=== PATIENT | female | born 1975 | race Caucasian/White ===

== ENCOUNTER 2016-12-31 20:17 | Emergency (ER) | payer BC ==
[2016-12-31 20:33] VITALS: BP 115/87
--- NOTE | 2016-12-31 21:01 | EDM.PDOC ---
ED HPI GENERAL MEDICAL PROBLEM - General Chief Complaint: Lower Extremity Injury/Pain Stated Complaint: REDNESS TO RIGHT LEG Time Seen by Provider: 12/31/16 20:18 Source of Information: Reports: Patient, Family History Limitations: Reports: No Limitations - History of Present Illness INITIAL COMMENTS - FREE TEXT/NARRATIVE: This is a 41-year-old female. She was seen twice yesterday at [place]. She had pain in her right lower extremity and she has a history of blood clots and they did a ultrasound that did not show any blood clots but did show some lymphadenopathy in the right groin. They sent her home and when she got home after a few hours she noted a red spot on the back of her right lower leg and there was increasing pain. She went back to the ER in some time and there they did a CT scan looking at the groin area and they found some mild swollen lymph nodes but nothing of great abnormality. Since that time the redness on the back of her right lower leg is markedly larger. The lymphadenopathy is about the same but there is much less pain. Patient comes tonight for reevaluation. She denies any fever or chills though she's been sweating some on occasions. She denies any nausea vomiting no abdominal pain no difficulty in urination and she denies . Review of the records from [place] shows a negative duplex scan of the right lower extremity and negative CT scan. She was noted to have a 14.1 white count with 87% neutrophils noted. Right Lower Leg Pain Score (Numeric/FACES): 4 - Related Data Allergies Allergy/AdvReac Type Severity Reaction Status Date / Time No Known Allergies Allergy Verified 12/31/16 20:26 Home Meds: Home Meds ALPRAZolam [Xanax] 1 tab PO ASDIRECTED PRN 07/05/16 [History] Escitalopram Oxalate [Lexapro] 50 mg PO DAILY 07/05/16 [History] Acetaminophen/oxyCODONE [Percocet 325-5 MG] 1 tab PO QID PRN 12/31/16 [History] Cephalexin [Keflex] 500 mg PO Q6HR #28 cap 12/31/16 [Rx] Cyclobenzaprine [Flexeril] 10 mg PO TID PRN 12/31/16 [History] Past Medical History HEENT History: Reports: Impaired Vision Other HEENT History: wears glasses Cardiovascular History: Reports: Blood Clots/VTE/DVT CREW BOSS History: Reports: Psychiatric History: Reports: Anxiety Hematologic History: Reports: Other (See Below) Other Hematologic History: anticardiolipin antibody - Past Surgical History Cardiovascular Surgical History: Reports: Other (See Below) GI Surgical History: Reports: Other (See Below) Social & Family History - Family History Endocrine/Metabolic: Reports: Diabetes, type II - Tobacco Use Smoking Status *Q: Never Smoker Second Hand Smoke Exposure: No - Caffeine Use Caffeine Use: Reports: Soda - Recreational Drug Use Recreational Drug Use: No Review of Systems - Review of Systems Review Of Systems: See Below Constitutional: Reports: Diaphoresis. Denies: Chills, Fever Eyes: Reports: No Symptoms Ears: Reports: No Symptoms Nose: Reports: No Symptoms Mouth/Throat: Reports: No Symptoms Respiratory: Reports: No Symptoms Cardiovascular: Reports: No Symptoms GI/Abdominal: Reports: No Symptoms Genitourinary: Reports: No Symptoms Musculoskeletal: Reports: Other (As per history of present illness) Skin: Reports: Other (As per history of present illness) Neurological: Reports: No Symptoms Psychiatric: Reports: No Symptoms ED EXAM, GENERAL - Physical Exam Exam: See Below Exam Limited By: No Limitations General Appearance: Alert, WD/WN, No Apparent Distress Eye Exam: Bilateral Eye: Normal Inspection Ears: Normal External Exam Nose: Normal Inspection Throat/Mouth: Normal Inspection, Normal Lips, Normal Voice Head: Normocephalic Neck: Supple Respiratory/Chest: No Respiratory Distress, Lungs Clear, Normal Breath Sounds Cardiovascular: Regular Rate, Rhythm, No Murmur GI/Abdominal: Soft, Non-Tender Back Exam: Full Range of Motion Extremities: Other (Her right lower extremity has a large patch of redness on the posterior lower leg it is approximately 12 cm x 28 cm in size extending from the back of the knee down to the ankle, her right foot does have some areas of callus that is split as well as some small areas that look like small abrasions but there is no redness around that area just above it, the redness does not extend into her thigh, the right groin still has some lymphadenopathy though it is not very tender at this time, the left lower extremity is normal) Neurological: Alert Psychiatric: Normal Affect, Normal Mood Skin Exam: Warm, Dry Course - Vital Signs Last Recorded V/S: Last Vital Signs Temp 97.6 F 12/31/16 20:28 Pulse 74 12/31/16 20:28 Resp 18 12/31/16 20:28 BP 115/87 12/31/16 20:28 Pulse Ox 97 12/31/16 20:28 - Orders/Labs/Meds Orders: Active Orders 24 hr Category Date Time Status VL Duplex Lwr Ext Veins Ltd Rt [US] Stat Exams 12/31/16 20:51 Taken cefTRIAXone 1 GM with Lidocaine 1% 2.1 ML IM Med 12/31/16 22:45 Ordered cefTRIAXone [Rocephin] 1 gm Lidocaine 1% [Xylocaine 1%] 2.1 ml IM Q24H Labs: Laboratory Tests 12/31/16 Range/Units 21:23 WBC 8.33 (3.98-10.04) K/mm3 RBC 4.84 (3.98-5.22) M/mm3 Hgb 13.6 (11.2-15.7) gm/L Hct 42.4 (34.1-44.9) % MCV 87.6 (79.4-94.8) fl MCH 28.1 (25.6-32.2) pg MCHC 32.1 L (32.2-35.5) g/dl RDW Std Deviation 45.1 (36.4-46.3) fL Plt Count 121 L (182-369) K/mm3 MPV 10.8 (9.4-12.3) fl Neut % (Auto) 74.1 H (34.0-71.1) % Lymph % (Auto) 17.5 L (19.3-51.7) % Gentry % (Auto) 7.0 (4.7-12.5) % Eos % (Auto) 0.7 (0.7-5.8) Baso % (Auto) 0.5 (0.1-1.2) % Neut # (Auto) 6.17 H (1.56-6.13) K/mm3 Lymph # (Auto) 1.46 (1.18-3.74) K/mm3 Gentry # (Auto) 0.58 H (0.24-0.36) K/mm3 Eos # (Auto) 0.06 (0.04-0.36) K/mm3 Baso # (Auto) 0.04 (0.01-0.08) K/mm3 - Radiology Interpretation Free Text/Narrative:: Ultrasound of the right lower extremity showed no evidence of a DVT. She did show some slightly prominent right groin lymph nodes that were suggested to be reactive - Re-Assessments/Exams Free Text/Narrative Re-Assessment/Exam: 12/31/16 22:45 I spoke to the patient regarding the ultrasound results as well as the lab results. I believe she has a cellulitis. We'll going to give her some Rocephin IM and place her on Keflex and she is to follow-up with her family doctor next week for recheck Departure - Departure Time of Disposition: 22:45 Disposition: Home, Self-Care 01 Condition: Good Clinical Impression: Cellulitis of right lower extremity without foot, Inguinal lymphadenitis - Discharge Information Prescriptions: Cephalexin [Keflex] 500 mg PO Q6HR #28 cap Referrals: Vanessa Kothari, [employer] [employer] [Primary Care Provider] - Forms: ED Department Discharge Additional Instructions: Stay off the right leg as much as possible over the weekend, use a heating pad or a moist compress to help the blood flow to that right lower extremity cellulitis, take the Keflex faithfully starting tomorrow, if there is worsening of your symptoms return to the ER, you might need some additional antibiotics after the 7 days so make sure you follow-up with your family doctor next week - My Orders Last 24 Hours: My Active Orders 12/31/16 20:51 VL Duplex Lwr Ext Veins Ltd Rt [US] Stat 12/31/16 22:45 cefTRIAXone 1 GM with Lidocaine 1% 2.1 ML IM cefTRIAXone [Rocephin] 1 gm Lidocaine 1% [Xylocaine 1%] 2.1 ml IM Q24H - Assessment/Plan Last 24 Hours: My Active Orders 12/31/16 20:51 VL Duplex Lwr Ext Veins Ltd Rt [US] Stat 12/31/16 22:45 cefTRIAXone 1 GM with Lidocaine 1% 2.1 ML IM cefTRIAXone [Rocephin] 1 gm Lidocaine 1% [Xylocaine 1%] 2.1 ml IM Q24H
[2016-12-31] MEDS ORDERED: cefTRIAXone 1 GM, Lidocaine 1% 2.1 ML IM SCH ×2 (22:45)
--- NOTE | 2017-01-02 13:55 | US ---
Right lower extremity deep venous ultrasound: Duplex and color flow imaging was obtained of the right common femoral, proximal greater saphenous, superficial femoral, popliteal, posterior tibial and peroneal veins. Left common femoral vein was also evaluated. Lymph nodes noted within the right inguinal region which are believed to be within normal limits as lymph nodes show a normal hyperechoic center. Normal phasic flow, augmentation and compression are seen. No subcutaneous edema is seen. Impression: 1. No findings of deep venous thrombosis are seen within the right lower extremity or within the left common femoral vein. 2. Other incidental findings. Diagnostic code #2 I agree with preliminary report issued by [facility] ([facility] report finalized on 12/31/16, 11:31 PM Central Time)
== END 2016-12-31 23:07 | disposition home or self-care (01) ==
LOC: JD.ED 20:17
DX: L03.115 Cellulitis of right lower limb (principal); I88.8 Other nonspecific lymphadenitis; F41.9 Anxiety disorder, unspecified; Z86.718 Personal history of other venous thrombosis and embolism; Z79.899 Other long term (current) drug therapy
CPT/HCPCS: 36415; 85025; 93971; 96372; 99284; J0696; 99283